=== PATIENT | female | born 1975 | race Two or more races ===

== ENCOUNTER 2020-11-07 14:00 | Emergency (ER) | payer MEDICAID ==
[~2020-11-07] VITALS: Ht 180.3 cm; Wt 74.8 kg
--- NOTE | 2020-11-07 15:21 | NUR ---
PATIENT REFUSED TO HAVE FURTHER TREATMENT. DR. PORRAS MADE AWARE. PATIENT REFUSED TO BE SEEN BY MD. REFUSED ANY PAPERWORK. Patient eloped from facility. ER MD notified.
[2020-11-07 15:38] VITALS: BP 113/69
== END 2020-11-07 15:39 | disposition left against medical advice (07) ==
LOC: ER 14:05
DX: Z53.21 Procedure and treatment not carried out due to patient leaving prior to being seen by health care provider (principal); R53.1 Weakness; R42 Dizziness and giddiness